=== PATIENT | female | born 1960 | race Two or more races ===

== ENCOUNTER 2021-08-23 21:18 | Emergency (ER) | payer OTHER ==
[~2021-08-23] VITALS: Ht 165.1 cm; Wt 64.4 kg
== END 2021-08-23 23:41 | disposition home or self-care (01) ==
LOC: ER 21:18
DX: K29.70 Gastritis, unspecified, without bleeding (principal)

== ENCOUNTER 2022-07-30 14:20 | Emergency (ER) | payer OTHER ==
[~2022-07-30] VITALS: Ht 160 cm; Wt 65.8 kg
[2022-07-30] MEDS ORDERED: DRAMAMINE LESS25 MG PO (17:21)
== END 2022-07-30 17:25 | disposition home or self-care (01) ==
LOC: ER 14:20
DX: R42 Dizziness and giddiness (principal); J32.0 Chronic maxillary sinusitis